=== PATIENT | male | born 2005 | race Caucasian/White ===

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

== ENCOUNTER 2023-04-07 14:44 | Emergency (ER) | payer OTHER, SELFPAY ==
[2023-04-07 14:45] VITALS: BP 128/85; PULSE 78; RESP 18; TEMP 36.6; O2SAT 98; BMI 24.5
--- NOTE | 2023-04-07 15:55 | EDS_ITS ---
HPI <ILAN Milan - Last Filed: 04/07/23 15:59> History of Present Illness Chief Complaint: Lower Extremity Injury Narrative Narrative: 17-year-old male was playing football outside on turf in the rain and when he started to run he felt a snap and pain in his right hamstring. He states it caused him to fall. He is able to ambulate but has to walk on his tiptoe. No weakness or paresthesias. PFSH <ILAN Milan - Last Filed: 04/07/23 15:59> PFSH Medical History Acute frontal sinusitis, unspecified Acute pharyngitis, unspecified Encounter for screening for COVID-19 Home Medications ibuprofen 600 mg tablet 600 mg PO Q6H PRN PRN pain #20 TABLETS 07/08/22 [Rx Last Taken 12/04/22] clindamycin HCl 300 mg capsule (Cleocin HCl) 300 mg PO Q6H #40 CAPSULES 12/05/22 [Rx Last Taken Unknown] hydrocodone-acetaminophen 5-325mg 5mg-325mg 1 tab PO Q4H PRN PRN Pain 2 days #10 TABLETS 12/05/22 [Rx Last Taken Unknown] Allergy/AdvReac Type Severity Reaction Status Date / Time No Known Allergies Allergy Verified 04/07/23 14:45 Surgical History History of nasal surgery History of shoulder surgery Social History Smoking Status: Never smoker ROS <ILAN Milan - Last Filed: 04/07/23 15:59> ROS ED ROS Narrative Neuro: Negative for motor/sensory dysfunction. Skin: Negative for wound. Musc: Negative for joint pain. Heme: Negative for easy bruising, bleeding, lymphadenopathy. EXAM <ILAN Milan - Last Filed: 04/07/23 15:59> Physical Exam Narrative Exam Narrative: CONST: Patient sitting in no acute distress. EYES: Normal inspection. NECK: Normal inspection. RESP: No respiratory distress, CTAB. CVS: Regular rate and rhythm, no murmur, no gallop. SKIN: Color normal, no rash, warm, dry, intact. EXTREMITIES: Normal appearance of bilateral extremities, full range of motion of all joints, no bony tenderness, tender over right mid hamstring. 5/5 strength, normal sensation, 2+ DP pulses. Compartments soft. NEURO: Oriented x4. PSYCH: Normal affect. Const Vital Signs: 04/07/23 14:45 Temperature 97.8 F Temperature Source Temporal Pulse Rate 78 Respiratory Rate 18 Blood Pressure 128/85 H Blood Pressure Mean 99 Pulse Ox 98 Oxygen Delivery Method Room Air <Dr. Meet Light MD - Last Filed: 04/07/23 16:17> Physical Exam Const Vital Signs: 04/07/23 14:45 Temperature 97.8 F Temperature Source Temporal Pulse Rate 78 Respiratory Rate 18 Blood Pressure 128/85 H Blood Pressure Mean 99 Pulse Ox 98 Oxygen Delivery Method Room Air MDM <ILAN Milan - Last Filed: 04/07/23 15:59> [facility] Narrative Medical decision making narrative: Patient felt pain in his right hamstring while playing football. He has no external signs of injury or hematoma. He has no bony tenderness. There is full range of motion and is neurovascularly intact. I do not think imaging is indicated as I do not suspect a fracture. It is more likely has a hamstring muscle strain and he was given crutches and ibuprofen, advised on symptomatic treatment, and should follow-up with his orthopedic doctor if not improving. <Dr. Meet Light MD - Last Filed: 04/07/23 16:17> [facility] Narrative Medical decision making narrative: Patient felt pain in his right hamstring while playing football. He has no external signs of injury or hematoma. He has no bony tenderness. There is full range of motion and is neurovascularly intact. I do not think imaging is indicated as I do not suspect a fracture. It is more likely has a hamstring muscle strain and he was given crutches and ibuprofen, advised on symptomatic treatment, and should follow-up with his orthopedic doctor if not improving. I have personally performed a face to face assessment of the patient and have reviewed the MIKEL Note. I performed a substantive portion of the visit including all aspects of the following. My vogt findings include: History is 17-year-old male playing football today started around he felt pulling in his right hamstring. No prior history or surgery. No other complaints. Exam is [-year-old male no acute distress vital signs stable afebrile. HEENT exam unremarkable. Neck nontender no lymphadenopathy. Lungs clear to auscultation bilaterally. Heart regular rhythm no murmur. Chest wall ribs nontender. Abdomen soft nontender. Back nontender. Right hamstring mild tenderness. No ecchymosis or bruising. No swelling. Full range of motion to his right hip, right knee, right ankle and foot. Normal touch sensation. No ecchymosis. No deficit. Clinically exam is consistent with a right hamstring strain.] Medical Decision Making [hamstring strain. Ice and rest. Ibuprofen.] Other additions or changes: [None] Discharge Plan Triage Chief Complaint: Lower Extremity Injury ED Midlevel Provider: Dafne Holder ED Provider: Meet Light Dx/Rx/DC Orders Clinical Impression: Right hamstring muscle strain Instructions: ED Muscle Strain, Extremity Prescriptions: No Action ibuprofen 600 mg tablet 600 mg PO Q6H PRN PRN (Reason: pain) Qty: 20 0RF clindamycin HCl [Cleocin HCl] 300 mg capsule 300 mg PO Q6H Qty: 40 0RF hydrocodone-acetaminophen [hydrocodone-acetaminophen] 5-325 mg tablet 1 tab PO Q4H PRN PRN (Reason: Pain) 2 Days Qty: 10 0RF Primary Care Provider: Dereck Lopez Referrals: Dereck Lopez MD [Primary Care Provider] - Activity Restrictions/Additional Instructions: Use ice and take Tylenol or ibuprofen and follow-up with your orthopedic doctor if not improving Disposition Disposition: Home, Self Care
[2023-04-07] MEDS: Ibuprofen 600 MG Tablet PO (16:10)
== END 2023-04-07 16:24 | disposition home or self-care (01) ==
LOC: ED 16:17
PROVIDERS: Emergency Provider Emergency Medicine; Visit Provider Emergency Medicine
DX: S76.311A Strain of muscle, fascia and tendon of the posterior muscle group at thigh level, right thigh, initial encounter (principal); X58.XXXA Exposure to other specified factors, initial encounter; Y93.61 Activity, american tackle football; Z79.899 Other long term (current) drug therapy
CPT/HCPCS: 99283

== ENCOUNTER 2023-11-12 20:22 | Emergency (ER) | payer OTHER, SELFPAY ==
[2023-11-12 20:22] VITALS: BP 142/87; PULSE 87; RESP 14; TEMP 36; O2SAT 97; BMI 24.9
--- NOTE | 2023-11-12 20:57 | EX.ED.UPPERE ---
HPI History of Present Illness Chief Complaint: Upper Extremity Injury Detail of Chief Complaint: Left wrist injury Informant: patient Narrative Narrative: Patient presents with left wrist injury that occurred while playing basketball about an hour ago. Patient states that he was coming down after jumping while another player was jumping up and he got his left wrist caught in between his body and the other player causing it to twist and he heard a snap. Patient is fractured that wrist in the past. Patient is right-hand dominant. PFSH PFS Medical History Acute frontal sinusitis, unspecified Acute pharyngitis, unspecified Encounter for screening for COVID-19 Home Medications ?Medication ?Instructions ?Recorded ?Last Taken ?Type quetiapine 25 mg tablet 25 mg PO QHS 11/12/23 Unknown History Allergy/AdvReac Type Severity Reaction Status Date / Time No Known Allergies Allergy Verified 11/12/23 20:33 Surgical History History of nasal surgery History of shoulder surgery Social History (Updated 11/12/23 @ 20:30 by Guera Armstrong) household members: family housing: house current occupational status: employed Smoking Status: Never smoker ROS ROS ED Review of Systems ROS Unobtainable: other Constitutional Constitutional ED: Reports lethargy; Denies chills, fever(s), sweats or weight loss Eyes Eyes: Denies blurry vision, change in vision or diplopia ENT ENT ED: Denies rhinorrhea or sore throat Cardiovascular Cardiovascular: Denies chest pain, orthopnea or racing heartbeat Respiratory/Chest Respiratory/Chest: Denies cough, dyspnea, dyspnea on exertion, orthopnea or sputum Gastrointestinal Gastrointestinal: Denies abdominal pain, diarrhea, nausea or vomiting Genitourinary Genitourinary ED: Denies dysuria, hematuria or urinary frequency Musculoskeletal Musculoskeletal: Reports other Details: Left wrist pain/injury ; Denies arthralgias, back pain, myalgias or neck pain Integumentary Denies abscess, Abrasions or rash Neurologic Neurologic: Denies headache(s) or weakness Psychiatric Psychiatric: Denies anxiety, depression or suicidal thoughts Endocrine Endocrinology: Denies polydipsia, polyphagia or polyuria Hematologic/Lymphatic Hematologic/Lymphatic: Denies easy bleeding, easy bruising or lymphadenopathy Allergic/Immunologic Allergic/Immunologic ED: Denies mouth swelling, tongue swelling or urticaria EXAM Physical Exam Const Vital Signs: 11/12/23 20:22 Temperature 96.8 F L Temperature Source Temporal Pulse Rate 87 Respiratory Rate 14 Blood Pressure 142/87 H Blood Pressure Mean 105 Pulse Ox 97 Positive well nourished and well developed General Appearance ED: well developed and NAD HEENT Reports TM's clear and moist mucous membranes normocephalic and atraumatic; Negative for trauma or tenderness Tympanic Membrane ED: Yes TM's clear Eyes PERRL and EOMs intact bilaterally General Eye ED: Negative for pale conjunctiva or scleral icterus Neck no lymphadenopathy, supple and no JVD General: Negative for tenderness Chest Wall inspection of chest normal and palpation of chest normal Chest: Negative for tenderness Resp normal respiratory effort and clear to auscultation bilaterally Effort and Inspection: Negative for respiratory distress or pain with movement Auscultation: Negative for rhonchi, wheezes or diminished lung sounds Cardio regular rate, regular rhythm, S1 normal heart sound, S2 normal heart sound and no murmurs Peripheral Pulses: pulses 2+ throughout GI normal to inspection, nondistended, normoactive bowel sounds, soft to palpation, non-tender, non-distended and no masses Back/Spine no CVA tenderness and no thoracic nor lumbar tenderness Extremity Extremity Narrative: Left wrist-no significant swelling or ecchymosis or bruising noted. There is no obvious deformity. Patient has tenderness to palpation over the ulnar styloid mostly. Slightly decreased range of motion in flexion extension secondary to pain. He is neurovascular intact distally. No pain at the elbow. General Extremety ED: Negative for edema General Extremity: Negative for edema Neuro oriented x3, CN's II-XII intact bilaterally, no sensory deficits noted and gait normal Sensorium / Orientation: awake, alert, oriented to person, oriented to place and oriented to time Motor Exam: strength 5/5 throughout and strength abnormal Psych mental status grossly normal Skin no rashes or lesions noted and no wounds MDM MDM MDM Narrative Medical decision making narrative: Patient presents with injury to left wrist. Three-view x-rays unremarkable for fracture. Patient will be placed in a wrist splint. He is instructed to ice the extremity and elevated. Patient advised to take ibuprofen or Tylenol for discomfort. Patient to follow-up with primary care physician within next 5 to 7 days. Radiography Diagnostic Testing: Three-view x-rays of the left wrist obtained interpreted by myself as no acute fracture or dislocation. Discharge Plan Triage Chief Complaint: Upper Extremity Injury ED Provider: Racquel Figueroa Dx/Rx/DC Orders Clinical Impression: Wrist sprain Instructions: ED Wrist Sprain Prescriptions: No Action quetiapine 25 mg tablet 25 mg PO QHS Primary Care Provider: Gisele Charles Referrals: Aren Conde MD [Med Staff - Active Staff] - 5-7 Days Care Physician,No Primary [Non-Staff] - Print Language: Lithuanian Disposition Disposition: Home, Self Care
--- NOTE | 2023-11-12 21:05 | RAD_ITS ---
INDICATION: injury EXAMINATION/TECHNIQUE: X-RAY - LEFT XR Wrist Min 3 Views 3 VIEWS COMPARISON: No relevant prior comparison study available FINDINGS: SOFT TISSUES: No soft tissue swelling or gas. No radiopaque foreign body. BONES/JOINTS: No acute fracture or subluxation.. Normal alignment. Preservation of the joint space.. No sclerotic or destructive changes observed. RAD/Wrist min 3 Views IMPRESSION: 1. No evidence fracture, malalignment or focal bony or joint space abnormality. Electronically Signed: Drew Devries MD at 21:27 EDT ,
[2023-11-12 21:36] VITALS: BP 115/82; PULSE 68; RESP 16; TEMP 36.9; O2SAT 99
== END 2023-11-12 21:43 | disposition home or self-care (01) ==
PROVIDERS: Emergency Provider Emergency Medicine; PCP Nurse Practitioner Family; Visit Provider Emergency Medicine
DX: S63.92XA Sprain of unspecified part of left wrist and hand, initial encounter (principal); W23.0XXA Caught, crushed, jammed, or pinched between moving objects, initial encounter; Y93.67 Activity, basketball
CPT/HCPCS: 73110; 99283

== ENCOUNTER 2024-01-10 22:25 | Emergency (ER) | payer OTHER, SELFPAY ==
[2024-01-10 22:26] VITALS: BP 143/96; PULSE 83; RESP 16; TEMP 36.7; O2SAT 98; BMI 24.1
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
[2024-01-10] MEDS: Ondansetron ODT 4 MG Tablet PO (23:07)
[2024-01-10] MEDS: Ibuprofen 600 MG Tablet PO (23:07)
[2024-01-10 23:11] VITALS: BP 124/70; PULSE 85; RESP 16; TEMP 36.2; O2SAT 99
== END 2024-01-10 23:12 | disposition home or self-care (01) ==
PROVIDERS: Emergency Provider Emergency Medicine; PCP Nurse Practitioner Family; Visit Provider Emergency Medicine
DX: S16.1XXA Strain of muscle, fascia and tendon at neck level, initial encounter (principal); V44.5XXA Car driver injured in collision with heavy transport vehicle or bus in traffic accident, initial encounter; Y92.410 Unspecified street and highway as the place of occurrence of the external cause
CPT/HCPCS: 99283

== ENCOUNTER 2024-10-06 15:50 | Emergency (ER) | payer BC, SELFPAY ==
[2024-10-06 15:52] VITALS: BP 133/87; PULSE 81; RESP 18; TEMP 36.2; O2SAT 98; BMI 23.9
--- NOTE | 2024-10-06 18:04 | EDS_ITS ---
HPI History of Present Illness Chief Complaint: Upper Extremity Injury Informant: patient Narrative Narrative: Patient is a [id number] male presenting for wound check. Problem him today he was at work and throwing drywall stacked with tile into trash. He struck something to try to catch it. He then sliced up his right hand (thenar eminence) and forearm. He was bleeding. His colleague was quite concerned and they went to an urgent care. He states that the urgent care he did not get a tetanus. Does not know when his last tetanus was. He received 2 stitches to his forearm but no repair to his thumb. After that he went back to work but was really doing much and then all of a sudden he had significant swelling at the site of his stitches on his forearm. It is continued to swell and he came back in. He states initially he was having a lot of bleeding but he denies any pulsatile/pumping bleeding. He states there is no deep sutures placed. He does not have any known history of any bleeding issues. He does drink alcohol on the weekends. No other complaints or concerns reported at this time. States it is quite painful in his forearm when he states he almost felt like his forearm was going to explode. He denies any numbness of his distal arm/hand or weakness. Tetanus Immunization: Unknown [facility] Medical History Acute pharyngitis, unspecified Acute frontal sinusitis, unspecified Encounter for screening for COVID-19 Home Medications ?Medication ?Instructions ?Recorded ?Last Taken ?Type quetiapine 25 mg tablet 25 mg PO QHS 11/12/23 Unknow n History cephalexin 500 mg capsule 500 mg PO Q8H #21 caps 10/06 Unknown Rx hydrocodone-acetaminophen 5-325mg 1 tab PO Q8H PRN mekhi n 3 days #10 10/06/24 Unknown Rx 5mg-325mg tabs Allergy/AdvReac Type Severity Reaction Status Date / Time No Known Allergies Allergy Verified 10/06/24 15:52 Surgical History History of nasal surgery History of shoulder surgery Social History household members: family housing: house current occupational status: employed Smoking Status: Never smoker ROS ROS ED Constitutional Constitutional ED: Denies chills or fever(s) ENT ENT ED: Denies rhinorrhea or sore throat Respiratory/Chest Respiratory/Chest: Denies cough Gastrointestinal Gastrointestinal: Denies nausea or vomiting Musculoskeletal Musculoskeletal: Reports other Details: right arm pain and swelling Integumentary Reports other Details: Laceration to right hand, abrasions to right forearm distally and laceration to proximal right forearm with associated swelling?sutures in place at the proximal Neurologic Neurologic: Denies paresthesias or weakness Hematologic/Lymphatic Hematologic/Lymphatic: Denies easy bleeding or easy bruising EXAM Physical Exam Const Vital Signs: 10/06/24 15:52 Temperature 97.1 F L Temperature Source Temporal Pulse Rate 81 Respiratory Rate 18 Blood Pressure 133/87 H Blood Pressure Mean 102 Pulse Ox 98 Oxygen Delivery Method Room Air Positive well nourished and well developed General Appearance ED: well developed and NAD HEENT Reports moist mucous membranes Eyes PERRL Chest Wall inspection of chest normal and palpation of chest normal Resp normal respiratory effort and clear to auscultation bilaterally Cardio regular rate and regular rhythm Cardio Narrative: 2+ radial pulses, brisk capillary refill Extremity Extremity Narrative: Full range of motion of the right upper extremity. No obvious deformity. Compartments are soft. There is a hematoma in the proximal forearm underneath his laceration. It is tender to palpation. Made worse with range of motion especially pronation and supination. 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 Normal intrinsic movements of the h and. Normal sensation of the distal arm. Sensorium / Orientation: alert Psych mental status grossly normal Skin Skin Narrative: abrasions to right forearm, gaping full thickness laceration approximately 0.5 cm in length to the right thenar eminence, crescent in shape. On the right proximal forearm, ventral aspect there is approximately 2.5 cm laceration with [address] MDM MDM MDM Narrative Medical decision making narrative: Patient evaluated for swelling and increased pain of his proximal right forearm in the setting of recent laceration require repair at outside facility. In addition he is found to have a laceration to his right hand that was not previously repaired. Laceration repaired of the hand?see procedure note. Patient does have a hematoma but I do not think he has active bleeding. No pulsatile mass appreciated. He does not describe any arterial bleeding. Arm circumference is obtained at level of laceration and then monitored. On repeat check it is 2 cm greater. I discussed the case with plastic surgery on-call, Dr. Brown who came in to see the patient. He opened up the wound, evacuate hematoma impacted. Will follow- up with the patient in office tomorrow to replace the packing for wound check. Patient is given Erhard for pain control and started prophylactic Keflex (per recommendation of plastic surgery). Patient is quite agreeable this plan counseled that suture in his hand should be removed in approximately 10 days. Given return precautions to the ER. Tetanus is updated today as well. Differential Diagnosis Differential Diagnosis: Traumatic hematoma Differential Diagnosis: Arterial bleed Why less likely: No pulsatile mass, no report of any arterial bleeding prior to this. Management Discussion w/another healthcare provider: Full Fashioned Garment Knitter Procedures Lacerations right hand: Length: 0.2 in Depth: Skin Shape: cresent shaped Prep: Chlorhexadine Laceration repair: Irrigated, Lidocaine and Skin sutures Irrigated (ml): 100 Number of Sutures/Randall: 1 Suture Information: Ethilon, Mattress (horizontal ) and 4-0 Discharge Plan Triage Chief Complaint: Upper Extremity Injury ED Provider: Pooja Medellin Dx/Rx/DC Orders Clinical Impression: Laceration of right hand, Hematoma of right forearm, Need for wdthmgrixa-stfmhyp-zxafikbza (Tdap) vaccine Instructions: ED Hematoma, ED Laceration, Hand: All Closures Prescriptions: New hydrocodone-acetaminophen 5-325 mg tablet 1 tab PO Q8H PRN (Reason: pain) 3 Days Qty: 10 0RF cephalexin 500 mg capsule 500 mg PO Q8H Qty: 21 0RF No Action quetiapine 25 mg tablet 25 mg PO QHS Primary Care Provider: Gisele Charles Referrals: Je Brown MD [Med Staff - Active Staff] - Gisele Charles NP-C [Primary Care Provider] - Activity Restrictions/Additional Instructions: Follow-up with Dr. Brown tomorrow for wound check and change your packing. He will go over how to take care of this. Return if you have further concerns, bleeding or increased pain. Print Language: Venezuelan Disposition Disposition: Home, Self Care Discharge Date/Time: 10/06/24 21:53
[2024-10-06] MEDS: Diphth,Pertuss(Acell),Tet Vac 0.5 ML Vial IM (18:11)
[2024-10-06 19:51] VITALS: BP 155/85; PULSE 67; O2SAT 100
[2024-10-06] MEDS: Lidocaine 1% /Epi 1:100 (20ml) 20 ML Vial 10 ML INFILT (20:38)
--- NOTE | 2024-10-06 21:01 | CON.PCM.SX_ITS ---
Assessment & Plan Assessment/Plan (1) Hematoma of forearm: PLAN: Right forearm with hematoma after laceration repair Talked the patient extensively about risks, benefits, and alternatives to hematoma evacuation. He agreed to proceed. Please see separate operative note. No active bleeding once hematoma was evacuated. Wound was left open and packed with saline soaked gauze and wrapped with a pressure dressing (Coban) Patient counseled to remove Coban if numbness and tingling in the hands, will loosen dressing as needed, but ideally he keep some compression over the area. Follow-up with me in clinic tomorrow for packing change and to examine for reaccumulation. HPI Consult Data Date of Consult: 10/06/24 HPI Narrative HPI Narrative: JEANNA PEDRAZA is a 19 M who presents with a right forearm laceration that was repaired approximately 9 hours ago after he sustained a laceration from some drywall boards that fell onto his hand and forearm. He reports that the laceration was repaired at a local urgent care and that there was fat exposed and no pulsatile bleeding. He return to the emergency department tonight as his forearm swelled up significantly since the forearm laceration. Tetanus was updated. No personal or family history of bleeding or clotting problems. [facility] Medical History Acute pharyngitis, unspecified Acute frontal sinusitis, unspecified Encounter for screening for COVID-19 Home Medications ?Medication ?Instructions ?Recorded ?Last Taken ?Type quetiapine 25 mg tablet 25 mg PO QHS 11/12/23 Unknow n History Allergy/AdvReac Type Severity Reaction Status Date / Time No Known Allergies Allergy Verified 10/06/24 15:52 Surgical History History of nasal surgery History of shoulder surgery Social History household members: family housing: house current occupational status: employed Smoking Status: Never smoker Physical Exam Narrative Right upper Extremity Inspection: Large 7 x 7 cm area of swelling beneath 3 cm laceration on the right volar radial proximal forearm Palpation: compartments are all soft (all 4). Skin is tense over the hematoma though Motor: Able to bend and extend all MP, PIP, and DIP joints. 5 out of 5 radiation oncology nurse strength. Sensory: Intact to light touch on the radial and ulnar borders. Vascular: Finger tips are warm and well perfused with <2 second capillary refill. Charges/Coding Visit Charges Office Visits / Consults: 21840 OV L3 New 30min
--- NOTE | 2024-10-06 21:05 | OP.PCM_ITS ---
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 Discussed risk benefits and alternatives of hematoma evacuation in the emergency department. He agreed to proceed with evacuation and subsequent packing and wound care. Consent obtained (signed) and timeout performed. Procedure details: Right volar forearm prepped and draped in the emergency department. He was anesthetized with 10 cc of local as noted above. He was given time to take effect. The sutures were removed from the right volar radial forearm and a 100 cc hematoma was evacuated with blunt dissection using hemostats and finger dissection. The wound was irrigated with 100 cc of normal saline. There was no pulsatile bleeding following hematoma evacuation and no venous issues. The bleeding had stopped. The wound was then packed with saline soaked Kerlix and wrapped with Coban for compression dressing. Postoperative plan: Patient counseled to keep the Coban pressure dressing in place until clinic follow-up tomorrow 1 we will change the packing and discussed wound care. Patient was placed on Keflex 500 mg p.o. 3 times daily for 7 days. Tetanus is up-to-date after tetanus shot today. Patient happy with the plan. Surgical Findings: 100 cc hematoma under the skin within the subcutaneous wound in the right volar radial forearm. No pulsatile bleeding following hematoma evacuation wash, no active venous bleeding either Complications Complications: No
[2024-10-06] MEDS: HYDROcodone Bitartrate/Apap 5/325 Tablet PO (21:29)
[2024-10-06 21:38] VITALS: BP 140/80; PULSE 66; RESP 18; TEMP 36.6; O2SAT 99
== END 2024-10-06 21:53 | disposition home or self-care (01) ==
PROVIDERS: Emergency Provider Emergency Medicine; PCP Nurse Practitioner Family; Visit Provider Emergency Medicine
DX: L76.32 Postprocedural hematoma of skin and subcutaneous tissue following other procedure (principal); Y84.8 Other medical procedures as the cause of abnormal reaction of the patient, or of later complication, without mention of misadventure at the time of the procedure; S61.411A Laceration without foreign body of right hand, initial encounter; S51.811A Laceration without foreign body of right forearm, initial encounter; W22.8XXA Striking against or struck by other objects, initial encounter; Y99.0 Civilian activity done for income or pay; Z23 Encounter for immunization
CPT/HCPCS: 25028; 12001; 90715; 99282; A4216